=== PATIENT | male | born 1975 | race Two or more races ===

== ENCOUNTER 2020-05-04 09:09 | Outpatient (REF) | payer BC, SELFPAY | END 2020-05-04 09:10 | disposition home or self-care (01) | LOC: HO.LAB 09:09 | PROVIDERS: PCP Internal Medicine; Visit Provider Internal Medicine | DX: Z20.822 Contact with and (suspected) exposure to COVID-19 (principal) | CPT/HCPCS: 36415; C9803; U0003; U0005 ==

== ENCOUNTER 2020-06-14 12:58 | Outpatient (REF) | payer BC, SELFPAY ==
[2020-06-14 16:43] LABS: SARS COV2 PCR INHOUSE NEGATIVE (Negative)
== END 2020-06-14 12:59 | disposition home or self-care (01) ==
LOC: HO.LAB 12:58
PROVIDERS: Visit Provider Internal Medicine
DX: Z20.822 Contact with and (suspected) exposure to COVID-19 (principal)
CPT/HCPCS: C9803; U0003

== ENCOUNTER 2020-12-13 11:39 | Outpatient (REF) | payer BC, SELFPAY | END 2020-12-13 11:40 | disposition home or self-care (01) | LOC: HO.WFDLDS 11:39 | PROVIDERS: Visit Provider Internal Medicine | DX: Z20.822 Contact with and (suspected) exposure to COVID-19 (principal) | CPT/HCPCS: C9803; U0003; U0005 ==

== ENCOUNTER 2021-03-12 11:10 | Outpatient (REF) | payer BC, SELFPAY | END 2021-03-12 11:11 | disposition home or self-care (01) | LOC: HO.WFDLDS 11:10 | PROVIDERS: Visit Provider Internal Medicine | DX: Z20.822 Contact with and (suspected) exposure to COVID-19 (principal) | CPT/HCPCS: C9803; U0003; U0005 ==

== ENCOUNTER 2021-06-11 09:45 | Outpatient (REF) | payer BC, SELFPAY ==
[2021-06-11 10:13] LABS: COVID-19 Test Negative (Negative)
== END 2021-06-11 09:46 | disposition home or self-care (01) ==
LOC: HO.LAB 09:45
PROVIDERS: Visit Provider Internal Medicine
DX: Z20.822 Contact with and (suspected) exposure to COVID-19 (principal)
CPT/HCPCS: 87635; C9803

== ENCOUNTER → 2024-10-25 11:12 | Outpatient (BNVA) | payer SELFPAY | PROVIDERS: PCP Internal Medicine; Visit Provider Physician Assistant Medical | DX: Z02.79 Encounter for issue of other medical certificate (principal) ==